=== PATIENT | male | born 1945 | race Caucasian/White ===

== ENCOUNTER 2017-03-26 11:38 | Outpatient (CLI) | payer MEDICARE ==
[2017-03-26 13:16] LABS: #Eosinphils 0.3 thou/uL (0.0-0.7); #Lymphocytes 1.6 thou/uL (1.20-3.40); #Monocytes 0.5 thou/uL (0.11-0.59); #Neutrophils 6.7 thou/uL (1.40-6.50); %Basophils 0.2 % (0.0-1.0); %Eosinophils 3.1 % (0.0-10.0); %Lymphocytes 17.3 % (21.0-51.0); %Monocytes 5.1 % (0.0-10.0); %Neutrophils 74.3 % (42.0-75.0); Hemoglobin 14.9 g/dL (14.0-18.0); Mean Corpuscular HGB CONC 33.3 g/dL (32.0-36.0); Mean Corpuscular Hemoglobin 31.5 pg (27.0-31.0); Mean Corpuscular Volume 94.5 fl (80.0-94.0); Mean Platelet Volume 6.8 fL (7.4-10.4); Platelet Count 262 thou/uL (130-400); RBC Distribution Width 11.7 % (11.5-14.5); Red Blood Cell (RBC) Count 4.73 mill/uL (4.70-6.10)
[2017-03-26 13:36] LABS: Anion Gap 12 mmol/L (10-20); BUN (Urea Nitrogen) 13 mg/dL (8.4-25.7); Calc. Creatinine Clearance 0 mL/min (70-130); Calcium 10.2 mg/dL (7.8-10.44); Carbon Dioxide 28 mmol/L (23-31); Chloride 93 mmol/L (98-107); Estimated GFR-MDRD 83; Glucose 86 mg/dL (83-110); Sodium 129 mmol/L (136-145)
== END 2017-03-26 11:39 | disposition home or self-care (01) ==
LOC: LABBT 11:38
PROVIDERS: ATTEND Surgery
DX: Z01.818 Encounter for other preprocedural examination (principal); K40.90 Unilateral inguinal hernia, without obstruction or gangrene, not specified as recurrent
CPT/HCPCS: 80048; 85025; 93005; 93010

== ENCOUNTER 2017-04-02 10:20 | Day surgery (SDC) | payer MEDICARE ==
[2017-03-26 12:09] VITALS: BMI 25.2
[2017-04-02] MEDS ORDERED: Bupivacaine/Epinephrine 0.25% 30 ML VIAL ONE (11:12)
[2017-04-02] MEDS ORDERED: CEFAZOLIN/Water 2 GM/20 ML SYRINGE ONE (11:15)
[2017-04-02] MEDS ORDERED: Fentanyl 100 MCG/2 ML VIAL ONE (11:29)
[2017-04-02] MEDS ORDERED: PROPOFOL 200 MG/20 ML VIAL ONE (14:44)
[2017-04-02] MEDS ORDERED: Lidocaine 1% PF 5 ML VIAL ONE (14:44)
[2017-04-02] MEDS ORDERED: Dexamethasone 20 MG/5 ML VIAL ONE (14:44)
[2017-04-02] MEDS ORDERED: Ketorolac Tromethamine 30 MG/ML VIAL ONE (14:44)
[2017-04-02] MEDS ORDERED: ePHEDrine/0.9% NaCl/PF SYRINGE 50 mg/10 ml ONE (14:44)
[2017-04-02] MEDS ORDERED: Glycopyrrolate 0.2 MG/ML 5 ML SYRINGE ONE (14:44)
[2017-04-02] MEDS ORDERED: Ondansetron HCl/PF 4 MG/2 ML Vial ONE (14:44)
[2017-04-02] MEDS ORDERED: HYDROcodone/Acetaminophen 5/325 mg Tablet ONE (18:09)
--- NOTE | 2017-04-03 14:05 | OP ---
DATE OF PROCEDURE: 04/02/2017 PREOPERATIVE DIAGNOSIS: Left inguinal hernia. POSTOPERATIVE DIAGNOSIS: Bilateral inguinal hernia. PROCEDURE: Laparoscopic da Junior robot bilateral inguinal hernia repair with mesh, ProGrip. SURGEON: Manuel Whitfield M.D. ANESTHESIA: General. ESTIMATED BLOOD LOSS: Minimal. COMPLICATIONS: None. SPECIMEN: None. FINDINGS: Bilateral inguinal hernia. TECHNIQUE: The patient was taken to the operating room and placed supine on the table. After genera l anesthetic was obtained, a Mejia was placed. The abdomen was shaved, and draped in a sterile fashi on. Curved incision made above the umbilicus. Cautery was used to dissect down to and score the fas rosa. Abdominal cavity was entered bluntly using a Liv clamp. A 12-mm Ethicon trocar placed and hi gh-flow pneumoperitoneum was obtained. Left and right abdominal 8 mm robot trocars were placed. The peritoneum is taken down in the bilateral groin. The preperitoneal space was bluntly dissected bila teral. There were bilateral hernias. Dissection was performed to the pubic tubercle medially and to the anterior superiorly iliac crest laterally. The iliopectineal line was fully exposed, the bilate ral indirect inguinal hernias were dissected away from the other cord structures high up on the perit oneum. Bilateral ProGrip mesh was brought in through the lower abdominal incisions in the medial lab eled aspect was placed over pubic tubercle. The mesh was unfolded to completely cover the direct, in direct and femoral areas. The peritoneum was reapproximated using a running 3-0 Stratafix. All port sites were infiltrated using local anesthetic. All ports were removed under camera visualization. Pneumoperitoneum was let down. PDS was used to close the fascial defect above the umbilicus. All in cisions were irrigated and closed using 4-0 Monocryl and Dermabond. The patient was en route to [facility] in stable condition. All instrument counts, needle counts, and lap counts were correct.
== END 2017-04-02 19:55 | disposition home or self-care (01) ==
LOC: SDC 10:20
PROVIDERS: ATTEND Surgery
PROC: 0YUA4JZ Supplement Bilateral Inguinal Region with Synthetic Substitute, Percutaneous Endoscopic Approach (ICD-10-PCS; principal; 2017-04-02)
PROC: 8E0W4CZ Robotic Assisted Procedure of Trunk Region, Percutaneous Endoscopic Approach (ICD-10-PCS; 2017-04-02)
DX: K40.20 Bilateral inguinal hernia, without obstruction or gangrene, not specified as recurrent (principal); I10 Essential (primary) hypertension; E78.5 Hyperlipidemia, unspecified; H40.9 Unspecified glaucoma; Z79.82 Long term (current) use of aspirin; Z79.899 Other long term (current) drug therapy; Z98.41 Cataract extraction status, right eye; Z90.89 Acquired absence of other organs; Z98.890 Other specified postprocedural states; Z87.891 Personal history of nicotine dependence
CPT/HCPCS: J0131; J1100; J1885; J2001; J2405; J2704; J3010

== ENCOUNTER 2017-07-09 17:26 | Inpatient (IN) | payer MEDICARE ==
--- NOTE | 2017-07-09 19:22 | PDOC.FPRHP ---
- History of Present Illness Chief Complaint: Dizziness, Unsteady Gait History of Present Illness: This is a 72 yo Male who comes in w/ cc of Dizziness and unsteady gait. Says this afternoon was getting out of his truck and going into work and all of the sudden became dizzy. He said his friend present also noticed him leaning to one side. His friend then helped steady him. They then called his PCP Dr. Garcia and went into to her office urgently. Pt states he did not black out or pass out. Did not experience any chest pain or SOB. Reports being diophoretic. Denies any vision changes from his baseline. He has glaucoma and had eye surgery in the past and has some residual visual defecits from that. He denied any numbness or tingling. Pt states his sx's only lasted about 20 minutes and resolved. Friend present denied any slurred speech or speech changes. He states he did not feel weak or feel like one side was giving out. At Dr. Garcia's office she noted him to have positive Romberg. His BP was running 190/100. She got an ekg which was normal and from there sent him to the ER for further workup. Pt denies any numbness, weakness or tingling at this time. Family present in the room denies any speech changes. Pt denies chest pain, sob. Denies fever/ chills or recent illness. Denies feeling dizzy. Denies any current visual defecits compared to baseline. Pt reports having an episode of dizziness like this 2 weeks prior. Says that episode only lasted a few seconds. Says he was getting up from a chair and spun around. - Allergies/Adverse Reactions Allergies Allergy/AdvReac Type Severity Reaction Status Date / Time No Known Allergies Allergy Verified 03/26/17 12:10 - Home Medications Medication Instructions Recorded Confirmed Type Aspirin [Ecotrin] 325 mg PO QAM 03/26/17 07/09/17 History Losartan/Hydrochlorothiazide 1 tablet PO QPM 03/26/17 07/09/17 History [Losartan-Hctz 100-12.5 mg Tab] Multivitamin [Daily Multiple 1 each PO QAM 03/26/17 07/09/17 History Vitamin] Simvastatin 40 mg PO QAM 03/26/17 07/09/17 History Citalopram [CeleXA] 20 mg PO DAILY 07/09/17 07/09/17 History Temazepam 15 mg PO HS 07/09/17 07/09/17 History - History PMHx: HTN, HLD, CINDI, Insomnia, Glaucoma PSHx: Bilateral Hernia Repair, Eye surgery FHx: Father- Stroke (age 75) Social: Quit smoking in the 80's, Quit drinking 3-4 years ago, No illicit drug use - Review of Systems General: denies: fever/chills, weight/appetite/sleep changes, night sweats, fatigue Eyes: denies: eye pain, vision changes, other ENT: denies: nasal congestion, rhinorrhea, other Respiratory: denies: cough, congestion, shortness of breath, exercise intolerance Cardiovascular: denies: chest pain, palpitation, edema, paroxysmal nocturnal dyspnea, orthopnea Gastrointestinal: denies: nausea, vomiting, diarrhea, constipation, abdominal pain, GI bleeding Genitourinary: denies: incontinence, dysuria, polyuria Skin: denies: rashes, lesions, jaundice, itching Musculoskeletal: denies: tenderness, stiffness, swelling, arthritis/arthralgias Neurological: reports: weakness, other (Dizziness). denies: numbness, syncope, seizure - Vital signs BP: 151/93 HR: 70 RR: 21 Tmax: 98.0 Pox: 98% on RA Wt: 84kg - Physical Exam Constitutional: NAD, awake, alert and oriented, well developed HEENT: normocephalic and atraumatic, PERRLA, grossly normal vision, grossly normal hearing Neck: supple, trachea midline, no LAD, no JVD, no bruits Chest: no-tender to palpation, no lesions Heart: RRR, normal S1/S2, pulses present -Heart: Systolic murmur noted Lungs: CTAB, no respiratory distress, good air movement, no rales/rhonchi, no wheezing, no retractions Abdomen: soft, non-tender, bowel sounds present, no masses/distention, no hernias Musculoskeletal: normal structure, normal tone -Musculoskeletal: Strength 5/5 bilaterally in upper and lower extremities Neurological: no focal deficit, CN II-XII intact, normal sensation -Neurological: R pupil dilated and did not react to light. Likely related to chronic vision changes Babinski negative -Finger to nose negative -Heel to peguero negative -Did not perform Hints exam as was not having active vertigo -[place] Halpike and Mara maneuver negative Skin: no rash/lesions, good turgor, capillary refill <2 seconds Heme/Lymphatic: no unusual bruising or bleeding, no purpura, no petechia Psychiatric: normal mood and affect, good judgment and insight, intact recent and remote memory FMR H&P: Results - Labs Result Diagrams: 07/10/17 04:44 Lab results: Laboratory Tests 07/09/17 07/09/17 07/09/17 15:37 15:37 15:37 WBC 7.2 RBC 4.69 L Hgb 14.3 Hct 42.7 Plt Count 223 Neutrophils % 68.5 PT INR APTT Sodium 131 L Potassium 4.1 Chloride 93 L Carbon Dioxide 30 BUN 10 Creatinine 0.95 Glucose 112 H Calcium 9.8 Total Bilirubin 0.8 AST 28 ALT 26 Alkaline Phosphatase 63 Troponin I Less than 0.010 Serum Total Protein 6.8 Albumin 4.2 Globulin 2.6 07/09/17 07/09/17 15:37 19:06 WBC RBC Hgb Hct Plt Count Neutrophils % PT 12.4 INR 0.9 APTT 28.1 Sodium Potassium Chloride Carbon Dioxide BUN Creatinine Glucose Calcium Total Bilirubin AST ALT Alkaline Phosphatase Troponin I Less than 0.010 Serum Total Protein Albumin Globulin - EKG Interpretation EKG: Some trigeminy and Bigeminy noted on 2 lead EKG done in ER. No 12 lead EKG present at time. 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 ) FMR H&P: A/P - Problem List (1) Stroke Current Visit: Yes Status: Acute Code(s): I63.9 - CEREBRAL INFARCTION, UNSPECIFIED (2) HTN (hypertension) Current Visit: Yes Status: Acute Code(s): I10 - ESSENTIAL (PRIMARY) HYPERTENSION (3) HLD (hyperlipidemia) Current Visit: Yes Status: Acute Code(s): E78.5 - HYPERLIPIDEMIA, UNSPECIFIED (4) CINDI (generalized anxiety disorder) Current Visit: Yes Status: Acute Code(s): F41.1 - GENERALIZED ANXIETY DISORDER (5) Insomnia Current Visit: Yes Status: Acute Code(s): G47.00 - INSOMNIA, UNSPECIFIED (6) Glaucoma Current Visit: Yes Status: Acute Code(s): H40.9 - UNSPECIFIED GLAUCOMA (7) Systolic murmur Current Visit: Yes Status: Acute Code(s): R01.1 - CARDIAC MURMUR, UNSPECIFIED - Plan Stroke vs TIA -Dizziness and Unsteadiness, positive romberg sign at outside clinic. -No sign of Focal neuro defecit on exam here at ER. Will continue to reassess. [place] Halpike/Mara negative. Rule out BPPV -CTA shows significant stenosis of Proximal Basilar artery. -Will get MRI of brain for further assessment -Consult PT/OT -Admit to Stroke floor with q4hr neuro exams, Tele observation. -Consult Neurology- Follow recs -ECHO ordered- systolic murmur noted on exam -Will check FLP, A1c, TSH, B12, RBC folate, Mg and Phos as there were some EKG changes noted. -EKG showed some Bigeminy and trigeminy on 2 lead EKG. Will get 12 lead at this time HTN -Will allow for permissive HTN for 24 hrs. -Hold home meds at this time HLD -continue home meds CINDI -continue home med Insomnia -Continue home med Glaucoma -Could be why pupil is dilated on Right and nonreactive FMR H&P: Upper Level - Pertinent history 72 yo M pmhx HTN and HLD p/w transient episode of vertigo and left-sided lean earlier this afternoon. Total time of symptoms around 15 minutes. Stated that he got out of the car and was walking into the house when a friend noticed him leaning towards his left side. Around that time he also had an acute onset of dizziness which he describes more as a sensation of "imbalance." Denies feeling as if he was about to pass out or his vision darkening. No LOC or h/o head trauma. No focal weakness or vision changes (has blurry vision 2/2 glaucoma at baseline). Family/friend denies any slurred speech, facial droop, etc. Patient then went in to see his PCP, Dr. Garcia, who noted his BP to be 199/98 with a positive Romberg. She then sent him to [facility] which subsequently transferred him here. Patient also mentions that he had a similar episode of vertigo about 2 weeks ago after standing up from a chair but states that symptoms went away much quicker, in less than a minute. He does take a daily aspirin and took one earlier today. - Pertinent findings Gen: AAOx3, NAD, appears stated age HEENT: right pupil sluggishly reactive to light; EOMI Neck: no bruit CV: RRR, 3/6 systolic murmur best heard over RSB Lungs: CTAB Neuro: health care technician II-12 appear grossly intact, patellar reflexes 2+, Strength 5/5, FTN and HTS negative, babinksi negative. HINTS exam not performed 2/2 no active vertigo. Ext: no c/c/e - Plan Date/Time: 07/09/171920 I, Peterson Shearer MD, have evaluated this patient and agree with findings/plan as outlined by paid internship resident. Pertinent changes/additions are listed here. 72 yo CM with: 1) Vertigo with suspicion for acute neurovascular syndrome, TIA v. CVA. Admit to stroke. CTA shows stenosis in proximal basilar artery and symptoms concerning for possible posterior circulation insult. MRI ordered. Will obtain echo to complete stroke w/u; previous was also >6months ago, and patient with significant heart murmur. Checking B12/folate, TSH, Mg, Phos, FLP, A1c, and trending troponins. Cont. ASA and statin. Will have nursing get orthostatics. 2) Bigeminy/trigeminy: on 2 lead strip during EMS transport, will obtain 12 lead to confirm. Consider cards consult/amiodarone if persistent. 3) HTN: permissive HTN x 24 hours; restart BP meds tmrw 4) HLD: statin 5) Glaucoma: at baseline Attending Addendum - Attending Addendum Date/Time: 07/10/17 4031 I personally evaluated the patient and discussed the management with Dr. Pozo on 07/10/17. I agree with the History, Examination, Assessment and Plan documented above with any addition or exceptions noted below. Patient with hypertensive encephalopathy vs PRESS, likely related to basilar artery stenosis. BPs improved and symptoms resolved with exception of right pupillary response that is a little slow. Pupillary defect may be related to glaucoma. Will get MRI in AM and get stroke team involved. Consult neurology.
[2017-07-09 19:47] LABS: Troponin I Less than 0.010 ng/mL (< 0.028)
[2017-07-09] MEDS ORDERED: Acetaminophen 650 MG Suppository PR PRN (20:05)
[2017-07-09] MEDS ORDERED: Acetaminophen 325 MG TAB PO PRN (20:05)
[2017-07-09] MEDS ORDERED: Ondansetron HCl/PF 4 MG/2 ML Vial IVP PRN (20:05)
[2017-07-09] MEDS ORDERED: Ondansetron ODT 4 MG TAB PO PRN (20:05)
[2017-07-09] MEDS ORDERED: Bisacodyl 5 MG TAB PO PRN (20:05)
[2017-07-09] MEDS ORDERED: Bisacodyl 10 MG SUPP PR PRN (20:05)
[2017-07-09] MEDS ORDERED: hydrALAZINE 20 MG/ML VIAL SLOW IVP PRN ×2 (20:05→20:12)
[2017-07-09] MEDS ORDERED: Enoxaparin Sodium 40 MG/0.4 ML SYRINGE SC SCH (20:05)
[2017-07-09] MEDS ORDERED: Labetalol HCl 100 MG/20 ML VIAL SLOW IVP PRN ×2 (20:05→20:13)
[2017-07-09 22:30] LABS: Troponin I Less than 0.010 ng/mL (< 0.028)
[2017-07-10 03:00] LABS: Magnesium 2.1 mg/dL (1.6-2.6)
[2017-07-10 05:07] LABS: Hemoglobin A1c 5.3 % (4.0-6.0)
[2017-07-10 05:27] LABS: Anion Gap 10 mmol/L (10-20); BUN (Urea Nitrogen) 10 mg/dL (8.4-25.7); Calc. Creatinine Clearance 9 mL/min (70-130); Calcium 9.6 mg/dL (7.8-10.44); Carbon Dioxide 26 mmol/L (23-31); Cardiac Risk 2.6 (Less than 4.5); Chloride 99 mmol/L (98-107); Cholesterol 150 mg/dl (< 200 Desired); Estimated GFR-MDRD 90; Glucose 99 mg/dL (83-110); HDL Cholesterol 57 mg/dL (>60 Neg Risk); LDL Cholesterol, Calculated 73 mg/dL; Potassium 3.8 mmol/L (3.5-5.1); Sodium 131 mmol/L (136-145); Triglycerides 102 mg/dL (Less than 150)
--- NOTE | 2017-07-10 08:26 | PDOC.FM ---
- Subjective Subjective: This morning the patient denies any pain or weakness overnight. He states he slept well and did not have any episodes of dizziness. No issues walking to the restroom. Patient is tolerating PO diet without difficulty. - Objective Vital Signs & Weight: Vital Signs (12 hours) Temp Pulse Resp BP BP Pulse Ox 07/10/17 07:52 97.8 F 61 16 145/71 H 97 07/10/17 03:34 98.3 F 57 L 16 135/72 96 07/09/17 23:29 97.4 F L 66 16 130/61 95 07/09/17 22:25 97.5 F L 68 16 98 Weight Weight 8.301 kg Result Diagrams: 07/10/17 04:44 <Buster Soliman - Last Filed: 07/10/17 08:24> - Objective Vital Signs & Weight: Vital Signs (12 hours) Temp Pulse Pulse Pulse Resp BP BP 07/10/17 09:52 60 62 189/89 H 181/98 H 07/10/17 08:00 97.8 F 61 16 07/10/17 07:52 97.8 F 61 16 07/10/17 03:34 98.3 F 57 L 16 07/09/17 23:29 97.4 F L 66 16 BP BP Pulse Ox Pulse Ox Pulse Ox 07/10/17 09:52 98 94 L 07/10/17 08:00 99 07/10/17 07:52 145/71 H 97 07/10/17 03:34 135/72 96 07/09/17 23:29 130/61 95 Weight Weight 8.301 kg Result Diagrams: 07/10/17 04:44 <Anant Luo - Last Filed: 07/10/17 11:09> Phys Exam - Physical Examination Constitutional: NAD HEENT: PERRLA, moist MMs Neck: no nodes, full ROM Respiratory: no wheezing, clear to auscultation bilateral 4/6 systolic murmur heard in all quadrants Gastrointestinal: soft, non-tender, no distention, positive bowel sounds Musculoskeletal: no edema, pulses present Neurological: non-focal, moves all 4 limbs strength 4/4 in all extremities, no dysdiadochokinesia, sluggish R pupil Psychiatric: normal affect, A&O x 3 Skin: no rash, cap refill <2 seconds <Buster Soliman - Last Filed: 07/10/17 08:24> Dx/Plan (1) CINDI (generalized anxiety disorder) Code(s): F41.1 - GENERALIZED ANXIETY DISORDER Status: Acute (2) Glaucoma Code(s): H40.9 - UNSPECIFIED GLAUCOMA Status: Acute (3) HLD (hyperlipidemia) Code(s): E78.5 - HYPERLIPIDEMIA, UNSPECIFIED Status: Acute (4) HTN (hypertension) Code(s): I10 - ESSENTIAL (PRIMARY) HYPERTENSION Status: Acute (5) Insomnia Code(s): G47.00 - INSOMNIA, UNSPECIFIED Status: Acute (6) Stroke Code(s): I63.9 - CEREBRAL INFARCTION, UNSPECIFIED Status: Acute (7) Systolic murmur Code(s): R01.1 - CARDIAC MURMUR, UNSPECIFIED Status: Acute - Plan Plan: Stroke vs TIA -Dizziness and Unsteadiness, positive romberg sign at outside clinic. - no gross focal deficits noted -CTA shows significant stenosis of Proximal Basilar artery. -MRI brain today -Consult PT/OT -Consult Neurology- Follow recs - continue statin, 25% ASCVD -EKG showed some Bigeminy and trigeminy on 2 lead EKG. f/u on 12 lead # Systolic murmur - 4/6 systolic murmur could be source of dizziness symptoms - will get echo, anticipate may need to consult cardiology to eval for valve replacement -ECHO ordered- systolic murmur noted on exam - negative for orthostatic hypotension HTN -Hold home meds at this time - well controlled this AM HLD -continue home meds CINDI -continue home med Insomnia -Continue home med Glaucoma -Could be why pupil is dilated on Right and nonreactive <Buster Soliman - Last Filed: 07/10/17 08:24> Attending Addendum - Attending Addendum Date/Time: 07/10/17 1108 I personally evaluated the patient and discussed the management with Dr. Soliman I agree with the History, Examination, Assessment and Plan documented above with any addition or exceptions noted below. MRI today and echocardiogram otherwise expectant management. <Anant Luo - Last Filed: 07/10/17 11:09>
[2017-07-10] MEDS ORDERED: Enoxaparin Sodium 40 MG/0.4 ML SYRINGE SC SCH (09:00)
--- NOTE | 2017-07-10 10:06 | MRI ---
MRI BRAIN WITHOUT IV CONTRAST: Date: 07-10-17 History: Altered mental status. Unsteady gait and dizziness. Stroke. Comparison: CT head, 07-09-17. FINDINGS: There are scattered punctate and patchy areas of increased FLAIR and T2 weighted signal intensity in the periventricular and subcortical white matter, slightly greater on the left, which are nonspecific but likely attributable to mild chronic small vessel ischemic changes. There is no evidence of an ac rl infarction. There is a punctate focus of increased T2 weighted signal intensity in the left cereb ellar hemisphere, probably related to a tiny infarction. The right vertebral artery flow void is not well seen and may terminate in pica. The left vertebral artery flow void is dominant. There is otherw ise appropriate flow voids demonstrated at the base of the brain. The septum pellucidum and third ventricle are on the midline. Ventricular system is normal in size, s hape, and position. There is mild cerebral volume loss not unexpected for the patient's age. [place] lenses are not visualized bilaterally. Mucous retention cyst is present in the right maxillary antrum. Remainder of the skull base has a nor mal MRI appearance. IMPRESSION: 1. No acute intracranial abnormalities demonstrated. 2. Evidence for mild chronic small vessel ischemic changes. POS: [facility]
[2017-07-10] MEDS: Aspirin 81 mg Enteric Coated Tablet PO SCH (10:38)
--- NOTE | 2017-07-10 16:42 | EKG ---
Test Reason : Blood Pressure : / mmHG Vent. Rate : 054 BPM Atrial Rate : 054 BPM P-R Int : 148 ms QRS Dur : 096 ms QT Int : 428 ms P-R-T Axes : 047 035 026 degrees QTc Int : [address] elevation, consider early repolarization, pericarditis, or injury Borderline ECG Confirmed by PARVEEN JACOBS ([id number]) on 07/10/2017 4:41:52 PM Referred By: DAVID Confirmed By:PARVEEN JACOBS
[2017-07-10 17:43] LABS: CKMB 2.5 ng/mL (0-6.6); Troponin I Less than 0.010 ng/mL (< 0.028)
[2017-07-10] MEDS ORDERED: Atorvastatin Calcium 40 MG TAB PO SCH (21:00)
[2017-07-10] MEDS ORDERED: Non-Formulary Item 1 EACH (Losartan/Hydrochlorothiazide [Losartan-Hctz 100-12.5 Mg Tab] 1 PO SCH (21:00)
[2017-07-10] MEDS ORDERED: Hydrochlorothiazide 25 MG TAB PO SCH (21:00)
[2017-07-10] MEDS ORDERED: Losartan 25 MG TAB PO SCH (21:00)
[2017-07-10] MEDS ORDERED: Temazepam 15 MG CAP PO SCH (21:00)
--- NOTE | 2017-07-10 22:24 | CON ---
DATE OF CONSULTATION: 07/10/2017 REFERRING PROVIDER: Jose E Pozo M.D. REASON FOR CONSULTATION: Dizziness. HISTORY OF PRESENT ILLNESS: Mr. Goff is a pleasant 72-year-old male who has been consult ed for evaluation of dizziness. The patient reports that on yesterday he was talking to someone over the phone and when he turned around, he noticed sudden onset of dizziness and feeling off balance. He had to hang up the phone and somebody had to come by to help him avoid falling down. He was off b alance and leaning to the side. There was no double vision, tinnitus, hearing changes, dysarthria, d ysphagia, numbness, tingling, weakness, lightheadedness or near syncope with this episode. He report s that he had similar episode approximately 2 weeks ago when he was at someone's office and suddenly when he turned around, he felt dizzy and off balance. This lasted for approximately 10-15 minutes wi th complete resolution of his symptoms. He currently reports of resolution of his symptoms. He rob es any headache, chest pain, palpitation, numbness, tingling, weakness, dysarthria or dysphagia. PAST MEDICAL HISTORY: Significant for hypertension, hyperlipidemia, insomnia and glaucoma. PAST SURGICAL HISTORY: Significant for bilateral hernia repair and eye surgery. SOCIAL HISTORY: He quit smoking in 1980s. He quit drinking alcohol in 3-4 years ago. He denies ill icit drug use. He is . FAMILY HISTORY: Significant for father with history of stroke. CURRENT MEDICATIONS: Please review MAR. ALLERGIES: No known drug allergies. REVIEW OF SYSTEMS: As mentioned above in the HPI, otherwise negative. PHYSICAL EXAMINATION: VITAL SIGNS: Blood pressure 136/74, pulse of 60, temperature of 98.5, respirations of 16, and O2 sat s 96% on room air. GENERAL: Well-developed, well-nourished male in no apparent distress. RESPIRATORY: Clear to auscultation bilaterally. CARDIOVASCULAR: Regular rate and rhythm. NEUROLOGIC: Mental status: The patient is awake, alert, oriented x3. Speech and language: Fluent speech. Cranial nerves: Pupils are 3 mm and reactive. Visual roca are intact. External muscles are intact. No cyanosis noted. Face is symmetric. Tongue and uvula are midline. Motor exam showed normal tone and bulk with 5/5 strength in both upper and lower extremities. Sensory: Sensation is intact and symmetric. Deep tendon reflexes, 2+ reflexes in both upper and lower extremities. Babins ki: Plantar responses flexion bilaterally. Coordination intact to [id number], finger tappin g bilaterally. LABORATORY DATA: Reviewed, which included CMP, lipid profile, TSH, B12, which is all normal except s odium of 131. IMAGING STUDIES: MRI brain without contrast was reviewed, which showed no acute intracranial abnorma lity. IMPRESSION: Dizziness, likely a transient ischemic attack. Mr. Goff is a pleasant 72-year-old male who presented with the episode of dizziness and f eeling off balance. This could be secondary to transient ischemic attack. This could also be benign positional vertigo. At this time, I have reviewed his MRI brain, which showed no acute intracranial abnormality. I will recommend obtaining echocardiogram and carotid Dopplers. If they are normal, t he patient is okay to be discharged to home. He will continue on aspirin 325 mg daily for secondary stroke prevention. Thank you for consultation.
--- NOTE | 2017-07-10 22:44 | CON ---
DATE OF CONSULTATION: 07/10/2017 REASON FOR CONSULTATION: Abnormal EKG and new murmur. HISTORY OF PRESENT ILLNESS: Mr. Goff is a pleasant 72-year-old white gentleman, who comes to the ospital for stroke-like symptoms. He became suddenly dizzy after getting out of his truck, a friend was with him and he was told that he was leaning on the side. A friend help him not fall, they went to Dr. Garcia's office, his PCP and his symptoms lasted for about 20 minutes and then they resolved at Dr. Garcia's office. He was found to have blood pressure in the 190s/100s and unremarkable EKG, so he was sent to the ER for further evaluation. He was admitted for possible TIA workup. So far ghanshyam s symptoms have completely resolved and he is doing better and MRI of the brain was performed that sh owed just mild chronic ischemic changes, but nothing acute. An EKG was done and showed ST elevation in either pericarditis or early repolarization or ischemia; however, most likely this is just related to early repolarization. He is asymptomatic. He denies any chest pain, tightness, pressure. In ph ysical exam, he was found to have a murmur, which was never heard before, so Cardiology is being cons ulted for all of this. PAST MEDICAL HISTORY: 1. Hypertension. 2. Hyperlipidemia. 3. General anxiety disorder. 4. Insomnia. 5. Glaucoma. PAST SURGICAL HISTORY: 1. Bilateral hernia repair. 2. Cataract surgery. FAMILY HISTORY: Father had a CVA at 75. Otherwise, noncontributory. SOCIAL HISTORY: Former smoker, quit in the 1980s, has had a drink for about 4 years. No drug use. OUTPATIENT MEDICATIONS: Include, 1. Aspirin 325 a day. 2. Losartan/hydrochlorothiazide 100/12.5 mg a day. 3. Multivitamin daily. 4. Simvastatin 40 mg q.p.m. 5. Celexa 200 mg daily. 6. Temazepam 50 mg at bedtime. ALLERGIES: No known drug allergies. REVIEW OF SYSTEMS: A 12-point review of systems was done and is all negative unless stated in the in story of present illness. PHYSICAL EXAMINATION: VITAL SIGNS: Temperature 97.8, pulse 73, respiration rate 18, satting 97% on room air, and blood pre ssure 137/86. GENERAL: Awake, alert, oriented x3, in no distress. Speech is intact. HEENT: Normocephalic, atraumatic. NECK: Supple. LUNGS: Clear. CARDIOVASCULAR: S1 and S2. No S3 or S4. There is a grade 3/6 systolic murmur, probably early to mi d-peaking in the right upper sternal border, radiating to the left upper quadrant, there is a second holosystolic murmur at the apex. ABDOMEN: Soft, positive bowel sounds. EXTREMITIES: No edema. SKIN: Warm and dry. LABORATORY WORK: Reviewed. Chemistries were reviewed. Sodium a little low at 131. Troponins were negative x2. CK-MB was normal. Triglycerides of 102. Cholesterol 150, LDL 73, HDL of 57. Vitamin B12 and TSH were normal. CBC was also unremarkable. Coags were unremarkable. EKG was reviewed. Most likely early repolarization. 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 MRI of the brain was reviewed. ASSESSMENT AND PLAN: 1. New onset murmur: Echocardiogram is pending. He is asymptomatic from the standpoint of possible aortic stenosis. He denies any syncope, presyncope. Denies any chest pain, tightness, pressure, an d no shortness of breath. We will get the echocardiogram to make sure what the level of sclerosis of the aortic valve might be. 2. Abnormal electrocardiogram: Not concerning at this time, he is not having any symptoms from an a cute coronary syndrome and troponins are completely undetectable. Most likely this is just from ramon y repolarization related to his high blood pressure. Blood pressure control is needed. 3. Transient ischemic attack/cerebrovascular accident. It is thought that he does have a cerebrovas cular accident and we do not have a source. He may need to have an implantable loop recorder for cry ptogenic cerebrovascular accident. Thank you for letting us participate in the care of your patient. We will follow.
[2017-07-11 07:57] VITALS: BP 194/78; TEMP 97.7
[2017-07-11] MEDS: Aspirin 81 mg Enteric Coated Tablet PO SCH (08:18)
--- NOTE | 2017-07-11 08:27 | PDOC.FM ---
- Subjective Subjective: This morning the patient is asymptomatic. He states he is feeling well overall. He has had no chest pain shortness of breath or weakness overnight. He denies headache, N/V/D, and has been tolerating PO intake. - Objective Vital Signs & Weight: Vital Signs (12 hours) Temp Pulse Resp BP BP Pulse Ox 07/11/17 07:55 97.7 F 60 16 194/78 H 95 07/11/17 07:10 97.5 F L 56 L 20 96 07/11/17 03:19 97.5 F L 56 L 20 148/80 H 94 L 07/10/17 23:28 97.8 F 60 16 143/75 H 97 Weight Weight 8.301 kg Result Diagrams: 07/10/17 04:44 <Buster Soliman - Last Filed: 07/11/17 08:28> - Objective Vital Signs & Weight: Vital Signs (12 hours) Temp Pulse Resp BP BP Pulse Ox 07/11/17 07:55 97.7 F 60 16 194/78 H 95 07/11/17 07:10 97.5 F L 56 L 20 96 07/11/17 03:19 97.5 F L 56 L 20 148/80 H 94 L Weight Weight 8.301 kg I&O: 07/10/17 07/11/17 07/12/17 06:59 06:59 06:59 Intake Total 300 Balance 300 Result Diagrams: 07/10/17 04:44 <Anant Luo - Last Filed: 07/11/17 11:38> Phys Exam - Physical Examination Constitutional: NAD HEENT: PERRLA, moist MMs Neck: no nodes, full ROM Respiratory: no wheezing, clear to auscultation bilateral Cardiovascular: RRR, no rub 3/6 systolic murmur Gastrointestinal: soft, non-tender, no distention, positive bowel sounds Musculoskeletal: no edema, pulses present Neurological: non-focal, moves all 4 limbs Psychiatric: normal affect, A&O x 3 Skin: no rash, cap refill <2 seconds <Buster Soliman - Last Filed: 07/11/17 08:28> Dx/Plan (1) CINDI (generalized anxiety disorder) Code(s): F41.1 - GENERALIZED ANXIETY DISORDER Status: Acute (2) Glaucoma Code(s): H40.9 - UNSPECIFIED GLAUCOMA Status: Acute (3) HLD (hyperlipidemia) Code(s): E78.5 - HYPERLIPIDEMIA, UNSPECIFIED Status: Acute (4) HTN (hypertension) Code(s): I10 - ESSENTIAL (PRIMARY) HYPERTENSION Status: Acute (5) Insomnia Code(s): G47.00 - INSOMNIA, UNSPECIFIED Status: Acute (6) Stroke Code(s): I63.9 - CEREBRAL INFARCTION, UNSPECIFIED Status: Acute (7) Systolic murmur Code(s): R01.1 - CARDIAC MURMUR, UNSPECIFIED Status: Acute - Plan Plan: # TIA -Dizziness and Unsteadiness, positive romberg sign at outside clinic. - no gross focal deficits noted -CTA shows significant stenosis of Proximal Basilar artery. - MRI brain shows small chronic ischemic changes - Neuro has evaluated, likely TIA - Carotid doppler pending - continue statin/ASA, 25% ASCVD # Systolic murmur - 3/6 systolic murmur could be source of dizziness symptoms - evaluated by cardiology - echo pending - asymptomatic from murmur # Abnormal EKg - early repolarization HTN -Hold home meds at this time - increase HCTZ to 25mg, add amlodipine upon d/c HLD -continue home meds CINDI -continue home med Insomnia -Continue home med Glaucoma -Could be why pupil is dilated on Right and nonreactive Dipso: ready to be d/c'd pending echocardiogram and carotid doppler <Buster Soliman - Last Filed: 07/11/17 08:28> Attending Addendum - Attending Addendum Date/Time: 07/11/17 1135 I personally evaluated the patient and discussed the management with Dr. Soliman I agree with the History, Examination, Assessment and Plan documented above with any addition or exceptions noted below. Echocardiogram completed report pending Reviewed Dr Cai consult and appreciate rec. Patient feeling well ok for dismissal with outpatient f/u with Dr Garcia. Longstanding glaucoma left eyes s/p shunt procedure pupil size finding not new finding <Anant Luo - Last Filed: 07/11/17 11:38>
--- NOTE | 2017-07-11 11:40 | PDOC.CTH ---
Cardiology Progress Note - Subjective He is doing well. No new issues. - Objective Vital Signs Temp Pulse Resp BP BP Pulse Ox 07/11/17 07:55 97.7 F 60 16 194/78 H 95 07/11/17 07:10 97.5 F L 56 L 20 96 07/11/17 03:19 97.5 F L 56 L 20 148/80 H 94 L Weight 18 lb 4.8 oz 07/10/17 07/11/17 07/12/17 06:59 06:59 06:59 Intake Total 300 Balance 300 - Physical Examination General/Neuro: alert & oriented x3, NAD Neck: no JVD present Lungs: CTA, unlabored respirations Heart: RRR Abdomen: NT/ND Extremities: other: (no edema) - Telemetry Telemetry Rhythm: NSR - Labs Result Diagrams: 07/10/17 04:44 Troponin/CKMB CK-MB (CK-2) 2.5 ng/mL (0-6.6) 07/10/17 17:06 Troponin I Less than 0.010 ng/mL (< 0.028) 07/10/17 17:06 - Assessment/Plan 1. Mild . 2. Mild AI 3. Normal LV function. 4. TIA PLAN: - No significant valvular lesion to explain his symptoms. - He will need follow up in the office in 6 months with a repeat echo to evaluate valve again make sure it is not rapidly progressing which is unlikely. - May discharge home any time from cardiac perspective.
--- NOTE | 2017-07-11 12:44 | DIS-2 ---
DATE OF ADMISSION: 07/09/2017 DATE OF DISCHARGE: 07/11/2017 RESIDENT: Dr. Buster Soliman. ADMITTING ATTENDING: Dr. Madeline Power. DISCHARGE ATTENDING: Dr. Anant Luo. CONSULTATIONS: Cardiology, Dr. Meadows; Neurology, Dr. Tejada. PROCEDURES: MRI, echocardiogram, CTA. PRIMARY DIAGNOSIS: Transient ischemic attack. SECONDARY DIAGNOSES: Systolic murmur, abnormal EKG, hypertension, hyperlipidemia, generalized anxiety disorder, insomnia, glaucoma. DISCHARGE MEDICATIONS: Aspirin 81 mg, amlodipine 5 mg, losartan/ hydrochlorothiazide 125, simvastatin 40 mg, multivitamin, temazepam 15 mg at bedtime, citalopram 20 mg. DISCONTINUED MEDICATIONS: None. HISTORY OF PRESENT ILLNESS AND HOSPITAL COURSE: This is a 72-year-old male, who came in with dizziness and unsteadiness of gait. He had hypertensive urgency and presented to his physician's office and was sent in to the hospital for further evaluation of hypertensive urgency and rule out of TIA , stroke. The patient stated he had symptoms for about 20 minutes while getting out of a truck the day of coming in. During this hospitalization, the patient had a CTA, which showed stenosis of the proximal basilar artery. He also had a brain MRI, which showed chronic ischemic changes. The patient was seen and evaluated by Neurology, who diagnosed this as a case of TIA with no need for medication changes, as the patient was already on aspirin and a statin. The patient's blood pressure medication was titrated up while here and added amlodipine 5 mg. The patient was asymptomatic throughout the stay. The patient's murmur was evaluated by Cardiology. Cardiology states that he should follow up with them in 6 months to recheck that the stenosis is not worsening at a rapid rate, but this is not anticipated. DISPOSITION: Stable. DISCHARGE INSTRUCTIONS: 1. Location: Home. 2. Diet: Regular. 3. Activity: As tolerated. 4. Followup: With Dr. Samantha Garcia in 3 days, Dr. Meadows 6 months. Continue to trend blood pressure management. Preventative management for stroke including continuing aspirin and statin, controlling BP, and lifestyle modification encouragement. ANNY
[2017-07-11 13:21] LABS: Folate,Hemolysate 597.5 ng/mL (Not Estab.); RBC Folate Test Component 1423 ng/mL (>498)
== END 2017-07-11 11:52 | disposition home or self-care (01) | DRG 69 ==
LOC: ERS 17:26 → OBSVTOIN 18:35 → 2SE 18:35
PROVIDERS: ADMIT Family Medicine; ATTEND Family Medicine
DX: G45.9 Transient cerebral ischemic attack, unspecified (principal); I65.1 Occlusion and stenosis of basilar artery; E78.5 Hyperlipidemia, unspecified; R01.1 Cardiac murmur, unspecified; F41.9 Anxiety disorder, unspecified; I16.0 Hypertensive urgency; F17.220 Nicotine dependence, chewing tobacco, uncomplicated; F41.1 Generalized anxiety disorder; H40.9 Unspecified glaucoma
CPT/HCPCS: 36415; 70551; 80048; 80061; 82553; 82607; 82747; 83036; 83735; 84100; 84443; 84484; 93005; 93010; 93306; A4216; G8978-GP-CH; G8979-GP-CH; G8980-GP-CH; G8987-GO-CH; G8988-GO-CH; G8989-GO-CH

== ENCOUNTER 2018-11-19 13:04 | Day surgery (SDC) | payer MEDICARE ==
[2018-11-18 08:37] VITALS: BMI 25.0
[~2018-11-19 13:04] MED LIST: Bupivacaine 10 ML VIAL ONE; CEFAZOLIN 1 GM VIAL ONE; EPINEPHrine 0.3 MG in Ophthalmic Irrigation Solution 500 ML IVP SCH; Indocyanine Green 25 MG/10 ML VIAL ONE; Lidocaine 1% PF 5 ML VIAL ONE; Lidocaine 4% PF 5 ML AMP ONE; Maxitrol 0.1% Opth Oint 3.5 GM TUBE ONE; PROPOFOL 200 MG/20 ML VIAL ONE; Triamcinolone 40 MG/ML VIAL ONE
[2018-11-19] MEDS ORDERED: Phenylephrine 2.5% Ophth Soln 5 ML BOT ONE (13:32)
[2018-11-19] MEDS ORDERED: Cyclopentolate 1% Opth Drop 2 ML BOT ONE (13:32)
[2018-11-19] MEDS ORDERED: PROPOFOL 20 ML ONE (14:41)
[2018-11-19] MEDS ORDERED: Fentanyl 100 MCG/2 ML VIAL ONE (14:41)
[2018-11-19] MEDS ORDERED: Midazolam HCl 2 mg/2 ml Vial ONE (14:41)
--- NOTE | 2018-11-19 23:01 | OP ---
DATE OF PROCEDURE: 11/19/2018 PREOPERATIVE DIAGNOSIS: Epiretinal membrane, left eye. POSTOPERATIVE DIAGNOSIS: Epiretinal membrane, left eye. PROCEDURES PERFORMED: 1. A 25-gauge pars plana vitrectomy, left eye. 2. Epiretinal membrane/internal limiting membrane removal, left eye. ESTIMATED BLOOD LOSS: None. SPECIMEN REMOVED: None. COMPLICATIONS: None. ANESTHESIA: MAC with retrobulbar block. DESCRIPTION OF PROCEDURE: The patient was identified in the preoperative holding area, where the correct eye being the left eye was marked for surgery. The patient was taken to the operating room, where MAC anesthesia was induced. A retrobulbar block was administered to the left eye. The block consisted of 1:1 ratio of 4% lidocaine and 0.75% Marcaine. A total of 5 mL was administered. The left eye was then prepped and draped in the usual sterile ophthalmic fashion for surgery. A wire lid speculum was placed. A standard 25-gauge pars plana vitrectomy platform was fashioned with trocars placed approximately 3.5 mm from the limbus. The infusion was noted to be within the vitreous cavity prior to being turned on to an infusion pressure of 30 mmHg. A light pipe Micro vitrector was introduced into the eye under visualization with a BIOM viewing system. A careful core vitrectomy was performed followed by injection of Kenalog. A gentle posterior vitreous detachment was created followed by completion of peripheral shave vitrectomy. Following completion of vitrectomy, ICG dye was used to stain the internal limiting membrane. Using the Mazin ILM Forceps, an internal limiting membrane/epiretinal proliferation complex was peeled in a circumferential fashion about the fovea. The peel extended approximately 2 disc diameters in radius. Following peeling, the Micro vitrector was re-introduced into the eye to remove any residual vitreous debris. A 360-degree scleral depressed exam of the periphery revealed no defects. The cannulas were sequentially removed and all sclerotomies were noted to be watertight. Subconjunctival Ancef and Kenalog were injected. The patient tolerated the procedure well and was taken to the outpatient recovery area in good condition. Job ID: [id number]
== END 2018-11-19 16:25 | disposition home or self-care (01) ==
LOC: SDC 13:04
PROVIDERS: ATTEND Ophthalmology Retina Specialist
PROC: 08T53ZZ Resection of Left Vitreous, Percutaneous Approach (ICD-10-PCS; principal; 2018-11-19)
PROC: 08NF3ZZ Release Left Retina, Percutaneous Approach (ICD-10-PCS; 2018-11-19)
DX: H35.372 Puckering of macula, left eye (principal)
CPT/HCPCS: J0171; J2250; J2704; J3010

== ENCOUNTER 2020-09-05 13:32 | Outpatient (CLI) | payer MEDICARE | END 2020-09-05 13:33 | disposition home or self-care (01) | LOC: SCSMRI 13:32 | PROVIDERS: ATTEND Specialist | DX: M51.17 Intervertebral disc disorders with radiculopathy, lumbosacral region (principal); M47.26 Other spondylosis with radiculopathy, lumbar region; M41.9 Scoliosis, unspecified; M48.061 Spinal stenosis, lumbar region without neurogenic claudication | CPT/HCPCS: 72148 ==